=== PATIENT | female | born 1975 | race Asian ===

== ENCOUNTER 2016-09-16 22:55 | Emergency (ER) | payer MEDICAID ==
[~2016-09-16] VITALS: Ht 167.6 cm; Wt 62.6 kg
[2016-09-16 22:55] VITALS: BP_SYST 107
[2016-09-16] MEDS ORDERED: DEXAMETHASONE SOD PHOSPHATE 10 MG/ML VIAL IVP ONE (23:15)
[2016-09-16] MEDS ORDERED: MECLIZINE HCL 25 MG TABLET (ANITVERT) PO ONE (23:15)
[2016-09-16] MEDS ORDERED: PROCHLORPERAZINE EDISYLATE 10 MG/2 ML VIAL IVP ONE (23:15)
[2016-09-16] MEDS ORDERED: KETOROLAC TROMETHAMINE 30 MG VIAL IVP ONE (23:15)
[2016-09-16] MEDS ORDERED: NACL 0.9% 1,000 ML IV ONE (23:15)
[2016-09-16 23:43] LABS: CALCIUM 8.7 mg/dL (8.4-11.0); CREATININE 0.65 mg/dL (0.55-1.30); POTASSIUM 3.1 mmol/L (3.5-5.1)
[2016-09-16 23:46] LABS: BASOPHILS % (AUTO) 0.5 % (0.0-2.0); EOSINOPHILS # (AUTO) 0.1 K/uL (0.0-0.4); EOSINOPHILS % (AUTO) 1.3 % (0.0-4.0); HEMATOCRIT 37.5 % (36-48); HEMOGLOBIN 13.2 g/dL (12.0-16.0); LYMPHOCYTES # (AUTO) 2.8 K/uL (1.0-5.5); LYMPHOCYTES % (AUTO) 37.1 % (20.5-51.5); MEAN CORPUSCULAR HEMOGLOBIN 31 pg (27-31); MEAN CORPUSCULAR HGB CONC 35 % (32-36); MEAN CORPUSCULAR VOLUME 87 fL (79.0-98.0); MONOCYTES # (AUTO) 0.8 K/uL (0.0-1.0); MONOCYTES % (AUTO) 10.1 % (1.7-9.3); NEUTROPHILS # (AUTO) 3.8 K/uL (1.8-7.7); PLATELET COUNT (AUTO) 227 K/uL (130-430); RED CELL DISTRIBUTION WIDTH 12.6 % (9.0-15.0); WHITE BLOOD COUNT (AUTO) 7.5 K/uL (4.8-10.8)
[2016-09-16 23:48] LABS: ALBUMIN 3.8 g/dL (3.4-4.8); TOTAL BILIRUBIN 0.2 mg/dL (0.0-1.0); TOTAL PROTEIN, SERUM 7.4 g/dL (6.4-8.3)
[2016-09-17 00:04] LABS: PROTHROMBIN TIME 11.1 SECS (9.5-12.5)
[2016-09-17] MEDS ORDERED: POTASSIUM CHLORIDE 20 MEQ TAB.PRT.SR PO ONE (00:30)
[2016-09-17 00:50] VITALS: BP_SYST 107
== END 2016-09-17 00:50 | disposition home or self-care (01) ==
LOC: SED 22:55
DX: E87.6 Hypokalemia (principal); R42 Dizziness and giddiness
CPT/HCPCS: 36415; 80053; 83880; 84484; 85025; 85610; 85730; 93005; 96361; 96374; 96375; 99285; J0780; J1100; J1885; J7030; J8597

== ENCOUNTER 2020-02-07 19:07 | Emergency (ER) | payer MEDICAID, OTHER ==
[~2020-02-07] VITALS: Ht 167.6 cm; Wt 69.4 kg
[2020-02-07 19:07] VITALS: BP_SYST 132
[2020-02-07 21:05] LABS: STREPTOCOCCUS A SCREEN (RAPID) NEGATIVE (NEGATIVE)
[2020-02-07 21:22] LABS: INFLUENZA A&B ANTIGEN SCREEN NEGATIVE FOR A & B (NEGATIVE)
[2020-02-07 21:38] VITALS: BP_SYST 122
== END 2020-02-07 21:38 | disposition home or self-care (01) ==
LOC: SED 19:07
DX: J02.9 Acute pharyngitis, unspecified (principal); M79.18 Myalgia, other site; R19.7 Diarrhea, unspecified; R03.0 Elevated blood-pressure reading, without diagnosis of hypertension; Z20.828 Contact with and (suspected) exposure to other viral communicable diseases
CPT/HCPCS: 86403; 86710; 87081; 99283; U0003